=== PATIENT | female | born 1985 | race Caucasian/White ===

== ENCOUNTER 2018-01-10 11:20 | Emergency (ER) | payer OTHER ==
[2018-01-10 11:32] VITALS: BP 110/80
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
== END 2018-01-10 11:57 | disposition home or self-care (01) ==
LOC: UCEAST 11:20
DX: T16.2XXA Foreign body in left ear, initial encounter (principal); H60.92 Unspecified otitis externa, left ear; F17.210 Nicotine dependence, cigarettes, uncomplicated; Z88.0 Allergy status to penicillin; X58.XXXA Exposure to other specified factors, initial encounter; Y92.9 Unspecified place or not applicable
CPT/HCPCS: 99213; G0463

== ENCOUNTER 2020-12-22 05:57 | Inpatient (IN) ==
[~2020-12-22 05:57] MED LIST: Buffered Lidocaine 1% SYRIN 1 ml INTRADERM ONE; Lactated Ringers 1000 ml BAG 1,000 ML IV ONE; Lactated Ringers 1000 ml BAG 1,000 ML IV SCH
[2020-12-22] MEDS ORDERED: ceFOXitin 2 GM IVPREMIX 2 GM/50 ML BAG IVPB ONE (06:00)
[2020-12-22] MEDS ORDERED: Morphine PF AMP (0.5MG/ML) 5 MG/10 ML AMP ONE (07:15)
[2020-12-22] MEDS ORDERED: Oxytocin 10 UNITS/ML 1 ML VIAL ONE (07:16)
[2020-12-22] MEDS ORDERED: EPHEDrine (Pressors) 50 MG/ML VIAL ONE (07:16)
[2020-12-22] MEDS ORDERED: Ondansetron 4 mg VIAL 2 MG/ML 2 ml VIAL ONE (07:16)
[2020-12-22] MEDS ORDERED: Phenylephrine 40 mcg/mL 10mL (400mcg) SYRINGE ONE ×2 (07:18→08:26)
[2020-12-22] MEDS ORDERED: Naloxone 0.4 mg VIAL 0.4 mg/ml 1 ml VIAL IV PRN (08:30)
[2020-12-22] MEDS ORDERED: Ondansetron 4 mg VIAL 2 MG/ML 2 ml VIAL IV PRN (08:30)
[2020-12-22] MEDS ORDERED: diPHENhydraMINE IV 50 MG/ML 1 ml VIAL (BENADRYL) IV PRN (08:30)
[2020-12-22] MEDS ORDERED: Acetaminophen IV 1 GM/100ML 1,000 MG/100 ML VIAL IVPB PRN (08:33)
[2020-12-22] MEDS ORDERED: Witch Hazel PAD JAR TOPICAL PRN (09:34)
[2020-12-22] MEDS ORDERED: Glycerin ADULT 2.4 gm SUPP PR PRN (09:34)
[2020-12-22] MEDS ORDERED: Dibucaine 1% OINT 28.35 GM TUBE PR PRN (09:34)
[2020-12-22 09:36] LABS: Urine Benzodiazepine Screen None Detected (None Detect); Urine Cannabinoids Screen None Detected (None Detect); Urine Opiates Screen None Detected (None Detect)
[2020-12-22 09:57] LABS: Urine Appearance Clear; Urine Bilirubin Negative (Negative); Urine Blood Negative (Negative); Urine Color Colorless; Urine Glucose Negative (Negative); Urine Ketones Negative (Negative); Urine Nitrite Negative (Negative); Urine Protein Negative (Negative); Urine Specific Gravity 1.002 (1.002-1.030); Urine Urobilinogen Negative (Negative)
[2020-12-22] MEDS ORDERED: Lactated Ringers 1000 ml BAG 1,000 ML IV SCH (10:00)
[2020-12-22] MEDS ORDERED: Ammonia Inhalant 1 EA AMP ONE (20:15)
[2020-12-23 05:32] LABS: ABS Eosinophils 0.1 10^3/ul (0-0.6); ABS Lymphocytes 1.2 10^3/ul (1.0-4.8); ABS Monocytes 0.5 10^3/ul (0-0.8); ABS Neutrophils 6.9 10^3/ul (1.5-7.7); Eosinophil % 0.8 %; Hematocrit 29 % (35-47); Hemoglobin 9.7 g/dL (12.0-16.0); Lymphocyte % 13.5 %; Mean Corpuscular HGB Conc 34 g/dL (31-36); Mean Corpuscular Hemoglobin 33 pg (27-31); Mean Corpuscular Volume 98 fL (80-97); Mean Platelet Volume 7.9 fL (7.4-10.4); Platelet Count 143 10^3/uL (150-450); Red Blood Count 2.93 10^6 /uL (3.70-4.87); Red Cell Distribution Width 14 % (10-15); White Blood Count 8.7 10^3/uL (3.5-10.8)
[2020-12-24 08:36] VITALS: BP 117/71
== END 2020-12-24 12:07 | disposition home or self-care (01) | DRG 540 ==
LOC: MCHOB 05:57
PROVIDERS: ADMIT Obstetrics & Gynecology; ATTEND Obstetrics & Gynecology